=== PATIENT | male | born 1975 | race Caucasian/White ===

== ENCOUNTER 2017-05-20 21:20 | Emergency (ER) | payer BC ==
[~2017-05-20] VITALS: Ht 180.3 cm; Wt 97.0 kg
[2017-05-20] MEDS ORDERED: MORPHINE SULFATE 4 MG/ML CPJ (NOT FOR IM USE) IV STA (23:22)
[2017-05-20] MEDS ORDERED: SODIUM CHLORIDE 0.9% 1,000 ML IV ONE (23:22)
[2017-05-20] MEDS ORDERED: ONDANSETRON HCL 4MG/2ML VIAL IV STA (23:22)
[2017-05-20 23:38] LABS: HEMATOCRIT. 44.8 % (42.0-52.0); HEMOGLOBIN. 15.7 g/dL (14.0-18.0); MEAN CORPUSCULAR HEMOGLOBIN 33.8 pg (28.0-32.0); MEAN CORPUSCULAR VOLUME 96.3 fL (80.0-94.0); MEAN PLATELET VOLUME 8.5 fl (7.4-10.4); PLATELET 216 x1000/uL (130-400); RED BLOOD CELL COUNT 4.65 mill/uL (4.7-6.1); RED CELL DISTRIBUTION WIDTH 13.2 % (11.6-14.6)
[2017-05-20 23:45] LABS: CHLORIDE 102 mEq/L (98-107)
[2017-05-20 23:57] LABS: PROTHROMBIN TIME 10.6 sec (9.4-11.6)
[2017-05-21 00:01] LABS: CARBON DIOXIDE 28 mEq/L (21-32)
[2017-05-21 00:23] LABS: CLARITY URINE TURBID (CLEAR); COLOR URINE ORANGE (YELLOW); GLUCOSE URINE NEGATIVE (NEGATIVE); KETONES URINE TRACE (NEGATIVE); LEUKOCYTE ESTERASE URINE TRACE (NEGATIVE); NITRITE URINE NEGATIVE (NEGATIVE); OCCULT BLOOD URINE 3+ (NEGATIVE); PROTEIN URINE 2+ (NEGATIVE); SPECIFIC GRAVITY URINE 1.031 (1.005-1.030); UROBILINOGEN URINE 0.2 E.U./dL (0.2-1.0)
[2017-05-21 00:48] LABS: *AMPHETAMINES SCREEN URINE NEGATIVE (NEGATIVE); *BARBITURATES SCREEN URINE NEGATIVE (NEGATIVE); *BENZODIAZEPINES SCREEN URINE NEGATIVE (NEGATIVE); *COCAINE SCREEN URINE NEGATIVE (NEGATIVE); CANNABINOID URINE SCREEN NEGATIVE (NEGATIVE); METHADONE URINE SCREEN NEGATIVE (NEGATIVE); OPIATES URINE SCREEN NEGATIVE (NEGATIVE); PHENCYCLIDINE URINE SCREEN NEGATIVE (NEGATIVE)
[2017-05-21 00:49] LABS: PLATELET ESTIMATE NORMAL
[2017-05-21] MEDS ORDERED: SODIUM CHLORIDE 0.9% 1,000 ML IV ONE (02:54)
[2017-05-21] MEDS ORDERED: MORPHINE SULFATE 4 MG/ML CPJ (NOT FOR IM USE) IV STA (02:54)
[2017-05-21 05:14] VITALS: BP 140/90
== END 2017-05-21 05:45 | disposition home or self-care (01) ==
LOC: ER 22:14
DX: N20.0 Calculus of kidney (principal); R11.0 Nausea
CPT/HCPCS: 36415; 74176; 80053; 80305; 81001; 83690; 85025; 85610; 96361; 96374; 96375; 96376; 99285; J2270; J2405; J7030; Z7610